=== PATIENT | female | born 1995 | race Caucasian/White ===

== ENCOUNTER 2019-01-26 14:44 | Emergency (ER) | payer OTHER ==
[~2019-01-26] VITALS: Ht 152.4 cm; Wt 45.4 kg
--- NOTE | 2019-01-26 15:58 | Diagnostic Imaging Report ---
EXAMINATION: PA and lateral views of the chest. COMPARISON: None CLINICAL HISTORY: Chest tightness DISCUSSION: Lines/tubes: None. Lungs: The lungs are well inflated and clear. Is no pneumonia or pulmonary edema. Pleura: No pleural effusion or pneumothorax. Heart and mediastinum: The cardiomediastinal silhouette is normal. Bones and soft tissues: No acute bony abnormalities. IMPRESSION: No acute cardiopulmonary abnormalities. Signed by: Dr. Jordan Murillo M.D. on 01/26/2019 3:55 PM
[2019-01-26 16:26] VITALS: BP 121/75
== END 2019-01-26 16:26 | disposition home or self-care (01) ==
LOC: ER 14:44
DX: R07.89 Other chest pain (principal)
CPT/HCPCS: 71046; 93005; 99282